=== PATIENT | female | born 1980 | race Caucasian/White ===

== ENCOUNTER → 2022-07-10 | Outpatient (CLI) | payer OTHER ==
[~2022-07-10] MED LIST: CITA20 PO; DIGO.25; ESCI10; FURO20
== END | disposition home or self-care (01) ==
LOC: LAB 11:21 → LAB SHORT 11:21
DX: M54.50 Low back pain, unspecified (principal)
CPT/HCPCS: 87086

== ENCOUNTER → 2023-08-16 | Outpatient (CLI) | payer OTHER ==
[2023-08-20 17:07] LABS: CARBOXY-THC 112 (.)
== END ==
LOC: LAB 16:38 → LAB SHORT 16:38
PROVIDERS: Family Medicine
DX: Z79.899 Other long term (current) drug therapy (principal)
CPT/HCPCS: G0480